=== PATIENT | female | born 1990 | race Native Hawaiian/Other Pacific Islander ===

== ENCOUNTER 2023-04-13 13:23 | Emergency (ER) | payer BC, SELFPAY ==
[2023-04-13 13:31] VITALS: BP 106/61; PULSE 79; RESP 16; TEMP 36.2; O2SAT 100
--- NOTE | 2023-04-13 14:05 | ED.GENADULT ---
HPI - General Adult General Chief complaint: Skin/Abscess/Foreign Body Stated complaint: skin infection Time Seen by Provider: 04/13/23 13:41 History of Present Illness HPI narrative: 33-year-old female presented the emergency department for evaluation for an excoriated rash on her face. Patient reports that she had previously been on Bactroban and then was started on doxycycline. Patient states that while she had been on the doxycycline she felt the infection had been improving but has not continued to worse again. Patient has not yet had follow-up with dermatology. Patient does admit to excoriating the rash/infection. Related Data Allergies Allergy/AdvReac Type Severity Reaction Status Date / Time No Known Allergies Allergy Verified 04/13/23 14:10 Review of Systems Review of Systems: All systems reviewed & are unremarkable except as noted in HPI and below PMFSH Family History Family History (Updated 03/07/16 @ 23:21 by DOCTOR UNKNOWN) Grandparent Family history of eczema Family history of malignant neoplasm of male breast Sibling Asthma Patient's sister is in good health Patient's brother is in good health Mother Family history of eczema Patient's mother is in good health Father Patient's father is in good health Social History Social History Alcohol intake: never Exam Narrative: APPEARANCE: Well appearing, no pain, no distress, well-nourished. HEAD: normocephalic, atraumatic. EYES: PERRLA/EOMI, conjunctivae clear. NOSE: Normal no drainage NECK: Supple. No adenopathy, no masses. RESPIRATORY: Airway patent, respirations nonlabored. Clear to auscultation bilaterally, no rales, rhonchi, wheezing. CARDIOVASCULAR: Regular rate and rhythm without murmurs rubs or gallops. ABDOMINAL: Soft, nontender, nondistended, normal bowel sounds MUSCULOSKELETAL: Moves all extremities. Strength/ROM intact, No edema, No calf tenderness. NEURO: Alert. Cranial nerves II through XII intact. Grossly intact SKIN: Excoriated rash on face and upper lip Course Course Emergency Course: 33-year-old female present emerged department for evaluation of an excoriated folliculitis on her face. Patient will be restarted on the doxycycline. Patient was encouraged of close follow-up with her primary care physician for follow-up. Patient was also encouraged to follow-up with dermatology. All questions and concerns were addressed. Vital Signs Vital signs: Vital Signs Temperature 97.2 F L 04/13/23 13:31 Pulse Rate 79 04/13/23 13:31 Respiratory Rate 16 04/13/23 13:31 Blood Pressure 106/61 04/13/23 13:31 Pulse Oximetry 100 04/13/23 13:31 Oxygen Delivery Room Air 04/13/23 13:31 Temperature 97.2 F L 04/13/23 13:31 Pulse Rate 79 04/13/23 13:31 Respiratory Rate 16 04/13/23 13:31 Blood Pressure 106/61 04/13/23 13:31 Pulse Oximetry 100 04/13/23 13:31 Oxygen Delivery Room Air 04/13/23 13:31 Medical Decision Making Vital Signs Vital Signs: Vital Signs Temperature 97.2 F L 04/13/23 13:31 Pulse Rate 79 04/13/23 13:31 Respiratory Rate 16 04/13/23 13:31 Blood Pressure 106/61 04/13/23 13:31 Pulse Oximetry 100 04/13/23 13:31 Oxygen Delivery Room Air 04/13/23 13:31 Temperature 97.2 F L 04/13/23 13:31 Pulse Rate 79 04/13/23 13:31 Respiratory Rate 16 04/13/23 13:31 Blood Pressure 106/61 04/13/23 13:31 Pulse Oximetry 100 04/13/23 13:31 Oxygen Delivery Room Air 04/13/23 13:31 Discharge Plan Discharge Clinical Impression: Cellulitis Patient Disposition: Home, Self-Care Condition: Stable Instructions: Antibiotic Form, Cellulitis (ED), Folliculitis (ED) Additional Instructions: Antibiotic as directed till completed. Avoid picking at the lesions. Avoid using make-up. Use a gentle SPF. Use a gentle face cleanser. Close follow-up with your primary care physician for a wound check. Prescriptions: New doxycycline hyclate
== END 2023-04-13 15:20 | disposition home or self-care (01) ==
LOC: ANHED 15:23
PROVIDERS: Emergency Provider Emergency Medicine
DX: L03.211 Cellulitis of face (principal)
CPT/HCPCS: 99283

== ENCOUNTER 2025-07-30 11:40 | Emergency (ER) | payer SELFPAY ==
--- OUTSIDE RECORDS SUMMARY | 2025-07-30 11:43 | XMS_ITS | Data Portability ---
Author Organization [place] [facility], Main Office Address [address] [place] [address] Assessment Encounter Date Assessment Date Assessment LastModified by Organization Details LastModified Time 09/29/2021 09/29/2021 Faye Bashir 31 y/o with pmhx of Acne vulgaris presents via TM visit for evaluation of acne. - Exam limited d/t TM visit. Pt understands. Picture looked like inflammatory papulse and nodules with scarring. - Previously on accutane. - Rx: Tretinoin cream 0.025% q4 days initally at bed time. - Advised pt to avoid eye area, apply a very small amount, to dry skin a bed time, use gentle cleanser. - Advised pt that d/t mod-severe acne and history she should follow up with dermatology. - RTC prn Patient voiced understanding of plan and had no further questions Julee Oliver PA-C Seen in collaboration with Dr. Bobby Connell [email or web address] Not available 10/01/2021 11:24:00 12/02/2021 12/02/2021 Faye is a 31yoF with PMH of acne who presents via TM for a follow-up. Acne Vulgaris - PE limited 2/2 TM but appearing to be consistent with acne vulgaris located: on face - Begin Clindamycin 1% topical gel BID - Continue tretinoin 0.025% topical cream nightly, refilled today - Discussed AE of medications including irritation, dryness, flaking - Discussed possibly advancing to PO antibiotics for acne if topical doesn't work - F/u in 1 month Patient voiced understanding of plan and had no further questions Thelma Ness PA-C Seen in collaboration with Dr. Bobby Connell (MARK [id number]) [email or web address] Not available 12/02/2021 12:18:47 01/24/2022 01/24/2022 Faye Bashir 31 y/o with pmhx of Acne vulgaris presents via TM visit for medication refill. - Exam limited d/t TM visit. - Previously on accutane. - Continue Tretinoin cream 0.025% q4 and clindamycin 1% topical gel. Refilled today. - Discussed with pt that if she becomes to discontinue tretinoin. - Advised pt to avoid eye area, apply a very small amount, to dry skin a bed time, use gentle cleanser. - RTC prn Patient voiced understanding of plan and had no further questions Julee Oliver PA-C Seen in collaboration with Dr. Bobby Connell I reviewed the chart and I agree with GABRIELE note and management plan. I was available via text/email/phone /videochat during the patient's evaluation. I reviewed the patient's pertinent studies (labs/x-rays/EKG /etc.). Dr. Bobby Connell [email or web address] Not available 03/07/2022 11:22:56 Plan of Treatment Reminders Order Date Submit Date Provider Last Modified By Organization Details Last Modified Time Details Appointments None recorded. Lab None recorded. Referral None recorded. Procedures None recorded. Surgeries None recorded. Imaging None recorded. Medication Orders tretinoin 0.025 % topical cream 2021 [facility] [address] [place], [address], 18:43:59 clindamycin 1 % topical gel 2021 [facility] [address] [place], [address], 18:44:01 clindamycin 1 % topical gel 2021 022 [email or web address] [facility] [address] [place], [address], 13:10:22 tretinoin 0.025 % topical cream 2021 022 [email or web address] [facility] [address] [place], [address], 13:10:22 tretinoin 0.025 % topical cream 2021 [facility] [address] [place], [address], 19:28:01 Patient TargetsNo targets recorded. Patient InstructionsNo instructions recorded. Reason for Referral None Reported. Medical Equipment None Reported. Medications Name Sig Start Date Stop Date Status Note LastModified by Organization Details LastModified Time citalopram 40 mg tablet TAKE 1 TABLET BY MOUTH ONCE DAILY IN THE MORNING active Not Available Not Available No t Available alprazolam 1 mg tablet TAKE 1 TABLET BY MOUTH ONCE DAILY AT BEDTIME NEEDED FOR SEVERE ANXIETY active Not Available Not Available No t Available tretinoin 0.025 % topical cream APPLY TO THE AFFECTED AREA(S) BY TOPICAL ROUTE ONCE DAILY AT BEDTIME 2022 active Not Available Not Available Not Avai lable fluoxetine 10 mg tablet active Not Available Not Available No t Available hydroxyzine pamoate 50 mg capsule TAKE 1 TO 2 CAPSULES BY MOUTH ONCE DAILY AT 10AM NEEDED FOR ANXIETY active Not Available Not Available No t Available hydroxyzine HCl 50 mg tablet active Not Available Not Available Not Available clindamycin 1 % topical gel APPLY A THIN LAYER TO THE AFFECTED AREA(S) BY TOPICAL ROUTE 2 TIMES PER DAY 2022 active Not Available Not Available Not Avai lable buspirone 30 mg tablet TAKE 1 TABLET BY MOUTH TWICE DAILY active Not Available Not Available No t Available escitalopram 10 mg tablet TAKE 1 TABLET BY MOUTH IN THE EVENING active Not Available Not Available No t Available bupropion HCl XL 150 mg 24 hr tablet, extended release TAKE 1 TABLET BY MOUTH ONCE DAILY IN THE MORNING active Not Available Not Available No t Available Vitals None Recorded Social History None recorded. Functional Status None recorded. Mental Status None recorded. Family History Nothing Reported. Medical History No medical history recorded. Gynecological HistoryNo gynecological history recorded. Obstetrics History GPAL:G 0 P 0 0 0 0 Past Encounters Encounter ID Performer Location Encounter Start Date Encounter Closed Date Diagnosis/Indication Diagnosis SNOMED-CT Code Diagnosis ICD10 Code Diagnosis IMO Codes Diagnosis Note [id number] JULEE OLIVER PA-C Main Office [address] [place] [address] 09/29/2021 17:33:00 10/04/2021 22:56:04 Acne vulgaris 22407820 L70.0 [id number] THELMA NESS Main Office [address] [place] [address] 12/02/2021 12:07:03 12/02/2021 12:20:27 Acne vulgaris 71883843 L70.0 [id number] JULEE SUAZO-C Main Office [address] [place] [address] 01/24/2022 18:33:33 01/24/2022 18:44:46 Acne vulgaris 41253646 L70.0 Health Concerns Section Related Observation LastModified by Organization Detai ls LastModified Time None Recorded Concern Status LastModified by Organization Details LastModified Time None Recorded Advance Directives Directive None Recorded Payers Insurance Date Sequence Insurance Name Policy Number Policy Quinn Covered Member ID Quinn Member ID Guarantor Name 03/08/2022 1 [employer] - [place] - DOS PRIOR TO 2025 (MEDICAID REPLACEMENT - HMO) [id number] Faye Bashir [id number] Faye Krysten Notes Date Note Type Note Provider Name and Address Organization Details Recorded Time 09/29/2021 text/html ROS as noted in the HPI Faye Bashir 31 y/o with pmhx of Acne vulgaris presents via TM visit for evaluation of acne. Reports that 10 years ago she was on accutane. Prior to that she was on oral antibiotics but never tried topical retinoids. Pt reports that she has cysts and sometimes they get inflamed and red. She is located in [facility] and is not close to here to come in. She is not currently on any treatments. She is not pregnanct or . WILMA Johnson - [facility] 10/01/2021 11:24:07 12/02/2021 text/html ROS as noted in the HPI Faye is a 31yoF with PMH of acne who presents via TM for a follow-up. She was started on Tretinoin 0.025% topical cream 09-29-2021. She states her skin has improved overall but she is still experiencing acne. Thelma lawson, [place] - [facility] 12/02/2021 13:11:40 01/24/2022 text/html ROS as noted in the HPI Faye Bashir 31 y/o with pmhx of Acne vulgaris presents via TM visit for medication refill. Reports that 10 years ago she was on accutane. Prior to that she was on oral antibiotics but never tried topical retinoids. 4 months ago we started her on clindamycin BID and tretinoin 0.025% qhs. Reports that her acne is under control and is doing well and has no acute concerns or complaints. She is not or . Bobby Connell, [address] [facility], [place], [address], [place] - [facility] 03/07/2022 11:22:59 OBGyn Episode No OBEpisode recorded.
--- OUTSIDE RECORDS SUMMARY | 2025-07-30 11:43 | XMS_ITS | Clinical Summary ---
Author Organization [facility] Care Team Providers Care Portfolio Lead Name Role Phone Unavailable Primary Care Provider Unavailabl e Social History Tobacco Use Types Packs/Day Years Used Date Smoking Tobacco: Never Assessed Comments Unknown Sex and Gender Information Value Date Recorded Sex Assigned at Not on file Legal Sex Female 2:32 PM [employer] Gender Identity Not on file Sexual Orientation Not on file Plan of Treatment Health Maintenance Due Date Last Done Comments Hepatitis C Virus (HCV) Screening 1991 TdaP Immunization 1991 Hepatitis B Immunization (1 of 3 - 19+ 3-dose series) 2010 Pap Smear 01/08/2012 Human Papillomavirus (HPV) Immunization (1 - 3-dose SCDM series) 2018 Cervical Cancer Screening (CCS) 2021 HPV/Cotest 2021 Influenza Immunization (#1) 2025 SARS-COV-2 Immunization ( season) 2025 Respiratory Syncytial Virus (RSV) Immunization (Adult) (1 - 1-dose 75+ series) 2066 Meningococcal Immunization (ACWY) Aged Out No longer eligible based on patient's age to complete this topic Pneumococcal Immunization Combined Aged Out No longer eligible based on patient's age to complete this topic Rotavirus Immunization Aged Out No lo nger eligible based on patient's age to complete this topic
[2025-07-30 11:51] VITALS: BP 137/86; PULSE 100; RESP 17; TEMP 36.4; O2SAT 99
--- NOTE | 2025-07-30 12:33 | PC.NURSE ---
patient presents to desk stating she was going to leave and follow up with doctor. advised to go to ER if symptoms persists. alert and oriented x4. ambulatory with steady gait.
== END 2025-07-30 12:57 | disposition left against medical advice (07) ==
DX: R19.7 Diarrhea, unspecified (principal)
CPT/HCPCS: 99199